=== PATIENT | male | born 1990 | race Caucasian/White ===

== ENCOUNTER 2018-04-03 10:07 | Emergency (ER) | payer OTHER ==
[~2018-04-03] VITALS: Ht 182.9 cm; Wt 104.3 kg
[~2018-04-03 10:07] MED LIST: ALBU90OI61 INH; Crutch1 EACH MISC; IBUP800 PO; Norco 5-325 Ta1 EACH PO; Vibramycin100 MG PO
[2018-04-03] MEDS ORDERED: ALBU90OI INH (11:15)
[2018-04-03] MEDS ORDERED: Prednisone20 MG PO (11:15)
== END 2018-04-03 11:32 | disposition home or self-care (01) ==
LOC: ER 10:07
DX: J45.901 Unspecified asthma with (acute) exacerbation (principal); Z88.8 Allergy status to other drugs, medicaments and biological substances; F17.210 Nicotine dependence, cigarettes, uncomplicated
CPT/HCPCS: 94640; 99283-25